=== PATIENT | male | born 1995 | race Two or more races ===

== ENCOUNTER 2024-03-07 11:48 | Emergency (ER) | payer MEDICAID ==
[~2024-03-07] VITALS: Ht 193 cm; Wt 94.3 kg
[2024-03-07] MEDS: LIDOcaine 1% W/epiNEPHrine 1:100,000 20ml vial SQ ONE (13:10)
[2024-03-07] MEDS ORDERED: CEPH-585 PO (13:22)
[2024-03-07 13:30] VITALS: BP 123/79; PULSE 68; RESP 16; TEMP 98; O2SAT 98
== END 2024-03-07 13:31 | disposition home or self-care (01) ==
LOC: ER 11:48
DX: S51.811A Laceration without foreign body of right forearm, initial encounter (principal); W26.8XXA Contact with other sharp object(s), not elsewhere classified, initial encounter; Y93.89 Activity, other specified; Y92.89 Other specified places as the place of occurrence of the external cause; Y99.8 Other external cause status
CPT/HCPCS: 12001; 99283; A6258; A6449